=== PATIENT | male | born 1960 | race Caucasian/White ===

== ENCOUNTER 2018-01-16 17:54 | Emergency (ER) | payer BC ==
[~2018-01-16] VITALS: Ht 170.2 cm; Wt 71.2 kg
[2018-01-16] MEDS ORDERED: PREDNISONE 20 M20 M1 PO (19:27)
[2018-01-16 20:05] VITALS: BP 115/56
== END 2018-01-16 20:05 | disposition home or self-care (01) ==
LOC: M.ERS 17:54
DX: T78.40XA Allergy, unspecified, initial encounter (principal); Z88.8 Allergy status to other drugs, medicaments and biological substances